=== PATIENT | male | born 1995 | race Caucasian/White ===

== ENCOUNTER 2019-03-28 11:05 | Day surgery (SDC) | payer BC ==
[~2019-03-28 11:05] MED LIST: Buffered Lidocaine 1% SYRIN* 1 ML/SYRINGE INTRADERM ONE; Bupivacaine 0.25% EPI 200,000* 30 ML SDV ONE; Lactated Ringers 1000 ML Bag* 1,000 ML IV SCH; ceFOXitin 2 GM IVPREMIX* 2 GM/50 ML BAG ONE
[2019-03-28] MEDS ORDERED: Ondansetron INJ* 2 MG/ML VIAL IV PRN (12:10)
[2019-03-28] MEDS ORDERED: Naloxone* 0.4 MG/ML 1 ML VIAL IV PRN (12:10)
[2019-03-28] MEDS ORDERED: Propofol* 10 MG/ML 20 ML BTL ONE (13:01)
[2019-03-28] MEDS ORDERED: HYDROmorphone INJ1* 1 MG/ML SYRINGE ONE ×2 (13:02→15:00)
[2019-03-28] MEDS ORDERED: Rocuronium* 10 MG/ML VIAL ONE (13:02)
[2019-03-28] MEDS ORDERED: Ketorolac INJ* 30 MG/ML 1 ML VIAL ONE (13:52)
[2019-03-28] MEDS ORDERED: Dexamethasone IV* 4 MG/ML 1 ML (4 MG) ONE (13:52)
[2019-03-28] MEDS ORDERED: Sugammadex * 200 MG/2 ML VIAL IV PUSH ONE (13:53)
--- NOTE | 2019-03-28 14:20 | OP ---
Operative Report - Blank - Operative Report Date of Operation: 03/28/19 Note: OPERATIVE REPORT Pre-op: Right lower quadrant pain Post-Op: Same Procedure:Laparoscopic appendectomy Surgeon: MD Philip Asst: none Anes: general with local IVF:1 liter of crystalloid EBL:min Specimen: Appendix Drain: none Wound: 4 Findings: Thickened indurated appendix, otherwise normal laparoscopy To PACU
[2019-03-28] MEDS: HYDROmorphone INJ1* 1 MG/ML SYRINGE IV PRN ×3 (15:02→15:38)
[2019-03-28 17:22] VITALS: BP 108/62
--- NOTE | 2019-03-29 01:40 | OP ---
CC: Dr. Rocky Saba, Internal Medicine * DATE OF OPERATION: 03/28/19 - [facility] DATE OF : 89 SURGEON: Homero Palacios MD SCHOOL PSYCHOLOGIST ASSISTANT: None. ANESTHESIOLOGIST: Dr. Hercules. ANESTHESIA: General with local. PRE-OP DIAGNOSIS: Right lower quadrant abdominal pain, abnormal appendix on preoperative CT scan. POST-OP DIAGNOSES: 1. Right lower quadrant abdominal pain, abnormal appendix on preoperative CT scan. 2. Slightly thickened/indurated appendix, normal terminal ileum, gallbladder, and right colon, and otherwise, normal laparoscopy. OPERATIVE PROCEDURE: Laparoscopic appendectomy. ESTIMATED BLOOD LOSS: Minimal. IV FLUIDS: 1 L of crystalloid. COMPLICATIONS: None. DRAINS: None. WOUND CLASSIFICATION: II. SPECIMEN: Appendix. FINDINGS: The appendix was whitish in color and slightly thickened in its appearance, slightly dilated in its appearance, and was somewhat indurated. The distal half appeared to be somewhat nodular. There is no evidence of acute or suppurative inflammation. The terminal ileum, right colon, gallbladder, and liver were all unremarkable. No other noted abnormalities were noted. There were no inguinal hernias and I noted no spigelian hernias. INDICATIONS/BRIEF HISTORY: Mr. Clayton Corbin is a 23-year-old gentleman who had developed some intermittent right lower quadrant abdominal pain in the last summer. This would come and go, but over the past month or so it became more persistent and constant. He underwent a laboratory workup which was all unremarkable. He has had no fevers. He has been eating well with normal GI function. He has had no diarrhea. A CT scan of his abdomen and pelvis did show nonenhancing appendix, slightly thickened in appearance with no contrast or air within it, without evidence of significant periappendiceal inflammation, however. After a long discussion with the patient and his symptomatology as well as the findings on the CT scan, we planned to proceed with a laparoscopic appendectomy , and its risks and benefits were all outlined in the preoperatively transcribed history and physical. DESCRIPTION OF PROCEDURE: Written informed consent was obtained, the abdomen was marked with indelible ink and preoperative antibiotics were administered. The patient was taken to the operating room and placed in the supine position. Sequential decompression devices and warming blanket were applied. General anesthesia was administered. The abdomen was prepped and draped in the usual sterile fashion. Time-out verification was completed. Small vertical incision was made just at the medially inferior to the umbilicus and the peritoneal cavity was entered under direct vision. A 12 mm blunt port was inserted and the abdomen was insufflated to 15 mmHg. Under direct vision, a 5 mm port was placed in the left lower abdominal wall and a second 5 mm port was placed in the suprapubic position. Upon evaluating the abdomen, there was no evidence of free fluid or inflammatory process. The liver and gallbladder were unremarkable. Transverse colon and ascending colon and cecum were all unremarkable. I identified the terminal ileum and this was completely unremarkable and I followed this back at least 50 to 60 cm. No evidence of Meckel's diverticulum or change within the ileum. I did not run the entire small bowel. The sigmoid colon and proximal rectum were unremarkable. No evidence of inguinal or femoral hernias. I noted no Spigelian hernia. The appendix was identified. It was completely intraperitoneal. The appendix was without evidence of acute inflammation, however, was more whitish in color, was somewhat hyperemic in its distal half, appeared to be firmer and mildly dilated, and there was some nodularity at the tip and was not a completely normal- appearing appendix. The mesoappendix was then divided sequentially with the LigaSure device down to the base of the appendix. The cecum was normal. The appendix was then divided with an Endo GI knapp load of 45 mm stapler, placed in an EndoCatch bag and brought out through the umbilical incision. The staple line was intact and hemostasis was assured. All ports were removed under direct vision of the camera. The umbilical fascia was closed with interrupted 0-Vicryl suture. The skin was approximated at all 3 incisions with subcuticular 4-0 Vicryl suture. Steri-Strips were applied. The patient tolerated the procedure well and was taken to the recovery room in stable condition. [id number]/[facility] #: [id number] [facility] SHOREEsthela
== END 2019-03-28 17:45 | disposition home or self-care (01) ==
LOC: OR 11:05
PROVIDERS: ATTEND Surgery
DX: K35.80 Unspecified acute appendicitis (principal); J30.2 Other seasonal allergic rhinitis
CPT/HCPCS: 88304; C1776; J0694; J1100; J1170; J1885; J2704